=== PATIENT | male | born 1935 | race Caucasian/White ===

== ENCOUNTER → 2018-05-05 | Outpatient (CLI) | payer OTHER ==
[~2018-05-05] MED LIST: ASPIR 8181 M1 PO; ATORVASTATIN CA40 MG PO; LISINOPRIL-HCT1 EAC3 PO
== END | disposition home or self-care (01) ==
LOC: RAD 05-04 13:00 → EDSTATUS 13:00 → RAD 13:00
PROC: 0JB53ZX Excision of Left Neck Subcutaneous Tissue and Fascia, Percutaneous Approach, Diagnostic (ICD-10-PCS; principal; 2018-05-05)
DX: C43.4 Malignant melanoma of scalp and neck (principal); Z85.820 Personal history of malignant melanoma of skin
CPT/HCPCS: 76942; 88305; 88341 TC; 88342 TC

== ENCOUNTER 2018-05-23 12:34 | Inpatient (IN) | payer OTHER ==
[~2018-05-23] VITALS: Ht 167.6 cm; Wt 82.6 kg
[2018-05-23 12:58] LABS: HEMATOCRIT 38.3 % (38.0-50.0); HEMOGLOBIN 13.2 G/DL (12.5-16.6); MCH 28.7 PG (29.0-34.0); MCHC 34.5 G/DL (30.0-36.0); MCV 83.3 FL (86-99); PLATELET COUNT 391 K/uL (156-360); RBC DIS.WIDTH-CV 13.6 % (11.8-14.6); RBC DIS.WIDTH-SD 41.7 % (39-53); WHITE BLOOD COUNT 21.5 K/uL (4.1-10.2)
[2018-05-23 13:10] LABS: ALBUMIN 3.6 g/dL (3.2-4.8)
[2018-05-23 13:11] LABS: CHLORIDE 94 mEq/L (99-109); POTASSIUM 3.6 mEq/L (3.7-5.4); SODIUM 134 mEq/L (136-147)
[2018-05-23 13:13] LABS: GLUCOSE 130 mg/dL (70-99); TOTAL PROTEIN 7.6 g/dL (6.4-8.3)
[2018-05-23 13:15] LABS: TOTAL BILIRUBIN 1.4 mg/dL (0.0-1.0)
[2018-05-23 13:16] LABS: ALKALINE PHOSPHATASE 123 IU/L (3-129)
[2018-05-23 13:17] LABS: CREATININE 1.6 mg/dL (0.6-1.3); GFR ESTIMATE (CALCULATED) 44 mL/min/ (58.99-99999)
[2018-05-23 13:18] LABS: AST (GOT) 41 IU/L (2-34); UREA NITROGEN (BUN) 39 mg/dL (9-23)
[2018-05-23 13:19] LABS: ALT (GPT) 19 IU/L (3-49)
[2018-05-23 14:09] LABS: TROP-I INTERPRETATION NEGATIVE; TROPONIN-I 0.02 ng/mL (0.0-0.30)
[2018-05-23 14:31] LABS: APPEARANCE SL.HAZY ((CLEAR)); BILIRUBIN NEGATIVE; BLOOD SMALL; COLOR AMBER ((YELLOW)); GLUCOSE (STRIP) NEGATIVE; KETONES NEGATIVE; LEUKOCYTES NEGATIVE; NITRITE NEGATIVE; PROTEIN (STRIP) 30; SPECIFIC GRAVITY 1.025 (1.000-1.030)
[2018-05-23 14:42] LABS: BACTERIA RARE /HPF; EPITHELIAL CELLS RARE /HPF; MUCUS 1+ /LPF; UCUL ADDED? YES
[2018-05-23 18:15] VITALS: BP 145/66
[2018-05-23 18:29] LABS: CARBOXY HGB 2.1 % (0-5); METHEMOGLOBIN 0.9 % (0-1.5); PCO2 34 mm Hg (35-45); PO2 61 mm Hg (80-100)
[2018-05-23 18:30] LABS: BASE EXCESS 3.3 mEq/L (-3 to +3); BICARBONATE 26.5 mEq/L (22-26)
[2018-05-23 23:36] VITALS: BP 136/63
[2018-05-24 00:40] VITALS: BP 120/57
[2018-05-24 06:26] LABS: HEMATOCRIT 35.4 % (38.0-50.0); HEMOGLOBIN 11.7 G/DL (12.5-16.6); MCH 28.3 PG (29.0-34.0); MCHC 33.1 G/DL (30.0-36.0); MCV 85.5 FL (86-99); PLATELET COUNT 305 K/uL (156-360); RBC DIS.WIDTH-CV 13.4 % (11.8-14.6); RBC DIS.WIDTH-SD 42.3 % (39-53); RED BLOOD COUNT 4.14 M/uL (4.00-5.50); WHITE BLOOD COUNT 16.8 K/uL (4.1-10.2)
[2018-05-24 06:40] LABS: ALBUMIN 2.8 G/DL (3.2-4.8); ALKALINE PHOSPHATASE 128 IU/L (3-129); ALT (GPT) 18 IU/L (3-49); AST (GOT) 36 IU/L (2-34); CHLORIDE 96 MEQ/L (99-109); POTASSIUM 3.9 MEQ/L (3.7-5.4); SODIUM 136 MEQ/L (136-147); TOTAL BILIRUBIN 1.2 MG/DL (0.0-1.0); TOTAL PROTEIN 5.3 G/DL (6.4-8.3); UREA NITROGEN (BUN) 29 mg/dL (9-23)
[2018-05-24 06:41] LABS: CREATININE 1.1 MG/DL (0.6-1.3); GFR ESTIMATE (CALCULATED) > 59 mL/min/ (58.99-99999); GLUCOSE 93 mg/dL (70-99)
[2018-05-24 07:32] VITALS: BP 135/60
[2018-05-24 17:00] VITALS: BP 102/58
[2018-05-25 06:10] LABS: BASOPHIL (%) 0.2 % (0-1); EOSINOPHIL (%) 1.1 % (0-5); EOSINOPHIL COUNT 0.2 K/uL (0-0.3); HEMATOCRIT 31.4 % (38.0-50.0); HEMOGLOBIN 10.4 G/DL (12.5-16.6); IMMATURE GRANULOCYTE (%) 1.1 % (0.0-0.7); LYMPHOCYTE (%) 6.3 % (15-42); LYMPHOCYTE COUNT 0.9 K/uL (1.0-2.8); MCH 28.3 PG (29.0-34.0); MCHC 33.1 G/DL (30.0-36.0); MCV 85.6 FL (86-99); MONOCYTE (%) 9.6 % (3-12); MONOCYTE COUNT 1.4 K/uL (0-0.8); NEUTROPHIL (%) 81.7 % (45-76); NEUTROPHIL COUNT 11.5 K/uL (1.8-6.4); PLATELET COUNT 288 K/uL (156-360); RBC DIS.WIDTH-CV 13.6 % (11.8-14.6); RBC DIS.WIDTH-SD 42.6 % (39-53); RED BLOOD COUNT 3.67 M/uL (4.00-5.50); WHITE BLOOD COUNT 14.1 K/uL (4.1-10.2)
[2018-05-25 06:32] LABS: ALBUMIN 2.4 G/DL (3.2-4.8); ALKALINE PHOSPHATASE 159 IU/L (3-129); ALT (GPT) 22 IU/L (3-49); AST (GOT) 45 IU/L (2-34); CHLORIDE 102 MEQ/L (99-109); GFR ESTIMATE (CALCULATED) > 59 mL/min/ (58.99-99999); GLUCOSE 108 mg/dL (70-99); POTASSIUM 3.8 MEQ/L (3.7-5.4); SODIUM 139 MEQ/L (136-147); TOTAL BILIRUBIN 0.9 MG/DL (0.0-1.0); TOTAL PROTEIN 5.1 G/DL (6.4-8.3); UREA NITROGEN (BUN) 21 mg/dL (9-23)
[2018-05-25 07:50] VITALS: BP 116/57
[2018-05-25 20:14] VITALS: BP 139/64
[2018-05-26 05:58] LABS: BASOPHIL (%) 0.5 % (0-1); BASOPHIL COUNT 0.1 K/uL (0-0.1); EOSINOPHIL (%) 1.5 % (0-5); EOSINOPHIL COUNT 0.2 K/uL (0-0.3); HEMATOCRIT 31.2 % (38.0-50.0); HEMOGLOBIN 10.3 G/DL (12.5-16.6); IMMATURE GRANULOCYTE (%) 2.6 % (0.0-0.7); LYMPHOCYTE (%) 6.9 % (15-42); LYMPHOCYTE COUNT 0.8 K/uL (1.0-2.8); MCH 28.5 PG (29.0-34.0); MCV 86.4 FL (86-99); MONOCYTE (%) 8.6 % (3-12); NEUTROPHIL (%) 79.9 % (45-76); NEUTROPHIL COUNT 8.8 K/uL (1.8-6.4); PLATELET COUNT 328 K/uL (156-360); RBC DIS.WIDTH-CV 13.6 % (11.8-14.6); RBC DIS.WIDTH-SD 43.4 % (39-53); RED BLOOD COUNT 3.61 M/uL (4.00-5.50)
[2018-05-26 06:16] LABS: ALBUMIN 2.3 G/DL (3.2-4.8); ALKALINE PHOSPHATASE 166 IU/L (3-129); ALT (GPT) 28 IU/L (3-49); CHLORIDE 103 MEQ/L (99-109); CREATININE 0.9 MG/DL (0.6-1.3); GFR ESTIMATE (CALCULATED) > 59 mL/min/ (58.99-99999); GLUCOSE 127 mg/dL (70-99); POTASSIUM 3.8 MEQ/L (3.7-5.4); SODIUM 141 MEQ/L (136-147); TOTAL PROTEIN 4.9 G/DL (6.4-8.3); UREA NITROGEN (BUN) 16 mg/dL (9-23)
[2018-05-26 06:48] LABS: AST (GOT) 67 IU/L (2-34)
[2018-05-26 07:50] VITALS: BP 129/61
[2018-05-26 15:00] VITALS: BP 131/64
[2018-05-26 23:52] VITALS: BP 159/70
[2018-05-27 06:07] LABS: HEMATOCRIT 30.7 % (38.0-50.0); HEMOGLOBIN 10.1 G/DL (12.5-16.6); MCH 28.3 PG (29.0-34.0); MCHC 32.9 G/DL (30.0-36.0); PLATELET COUNT 345 K/uL (156-360); RBC DIS.WIDTH-CV 13.5 % (11.8-14.6); RBC DIS.WIDTH-SD 42.7 % (39-53); RED BLOOD COUNT 3.57 M/uL (4.00-5.50); WHITE BLOOD COUNT 10.9 K/uL (4.1-10.2)
[2018-05-27 06:31] LABS: ALBUMIN 2.3 G/DL (3.2-4.8); ALKALINE PHOSPHATASE 142 IU/L (3-129); ALT (GPT) 22 IU/L (3-49); AST (GOT) 47 IU/L (2-34); CHLORIDE 103 MEQ/L (99-109); CREATININE 0.9 MG/DL (0.6-1.3); GFR ESTIMATE (CALCULATED) > 59 mL/min/ (58.99-99999); GLUCOSE 111 mg/dL (70-99); POTASSIUM 3.8 MEQ/L (3.7-5.4); SODIUM 141 MEQ/L (136-147); UREA NITROGEN (BUN) 11 mg/dL (9-23)
[2018-05-27 06:38] LABS: TOTAL BILIRUBIN 0.7 MG/DL (0.0-1.0)
[2018-05-27 06:40] LABS: BASOPHIL (%) 0.6 % (0-1); BASOPHIL COUNT 0.1 K/uL (0-0.1); EOSINOPHIL (%) 3.3 % (0-5); EOSINOPHIL COUNT 0.4 K/uL (0-0.3); IMMATURE GRANULOCYTE (%) 4.7 % (0.0-0.7); LYMPHOCYTE (%) 10.6 % (15-42); LYMPHOCYTE COUNT 1.2 K/uL (1.0-2.8); MONOCYTE (%) 9.4 % (3-12); NEUTROPHIL (%) 71.4 % (45-76); NEUTROPHIL COUNT 7.8 K/uL (1.8-6.4)
[2018-05-27 08:25] VITALS: BP 129/63
[2018-05-27] MEDS ORDERED: AUGMENTIN875 MG PO (10:33)
[2018-05-27] MEDS ORDERED: AMLODIPINE BESYL5 MG PO (10:33)
== END 2018-05-27 14:13 | disposition home or self-care (01) | DRG 417 ==
LOC: EME 12:34 → 5EAST 17:00 → EDOF 17:00 → 5EAST 17:57
PROVIDERS: Hospitalist; Internal Medicine Medical Oncology; Student in an Organized Health Care Education/Training Program
PROC: 0FT44ZZ Resection of Gallbladder, Percutaneous Endoscopic Approach (ICD-10-PCS; principal; 2018-05-25)
DX: K80.00 Calculus of gallbladder with acute cholecystitis without obstruction (principal); K82.2 Perforation of gallbladder; N17.9 Acute kidney failure, unspecified; E86.0 Dehydration; I95.9 Hypotension, unspecified; K55.1 Chronic vascular disorders of intestine; C43.9 Malignant melanoma of skin, unspecified; I10 Essential (primary) hypertension; E78.5 Hyperlipidemia, unspecified; Z79.82 Long term (current) use of aspirin
CPT/HCPCS: 36600; 74176; 76705; 78227; 80053; 81003; 84484; 85025; 85027; 87070; 87075; 87086; 87205; 88304; 93005; 93971; 94799; 99281; 99285; A9537; J0295; J0330; J1170; J1644; J2270; J2405; J2543; J2805; J3010; J7030; J7050; S0020